=== PATIENT | female | born 1950 ===

== ENCOUNTER 2022-05-31 08:35 | Day surgery (SDC) | payer MEDICARE, OTHER ==
[~2022-05-31] VITALS: Ht 170.2 cm; Wt 63.1 kg
[~2022-05-31 08:35] MED LIST: ASPI81CH PO; C COMPLEX1000 M1 PO; EUTHYROX125 MCG PO; EZETIMIBE10 M2 PO; IMITREX25 MG PO; MULVITA PO; ROSU5 PO; VITAMIN D310 MC4 PO
--- NOTE | 2022-05-31 11:15 | NUR ---
05/31/22 1115 Rick Castaneda 1G GIVEN IN PRE-OP AT 0647
--- NOTE | 2022-05-31 14:35 | NUR ---
PATIENT CAME BACK FROM PACU TODAY AT 1420. POD 0 LEFT TOTAL KNEE PATIENT IS A&OX4. VS ARE WNL AND IS ON RA. PATIENT DID HAVE A SPINAL DONE DURING THE PROCEDURE AND CAN NOT FEEL FROM HER KNEES AND BELOW (L1 DERMATOME). SHE IS UNABLE TO MOVE HER TOES AT THIS TIME BUT PEDAL PULSES ARE STRONG AND WARM. LEFT KNEE HAS JOSE WRAP WITH GAUZE THAT IS C/D/I. PATIENT REPORTS HAVING A MIGRAINE PAIN BUT OTHERWISE HAS NO PAIN. PATIENT WAS JUST GIVEN ORAL MIGRAINE MEDICATION. SHE IS TOLERATING SMALL SIPS OF WATER AT THIS TIME. CALL LIGHT WITHIN REACH. IS NOW AT BEDSIDE.
--- NOTE | 2022-05-31 18:10 | NUR ---
SHIFT SUMMARY: POD 0 LEFT TKA PATIENT HAS BEEN VERY PAINFUL AND NAUSEATED SINCE POST OP INTERMITTENTLY. PATIENT HAS BEEN GIVEN IV PHENERGAN AND DILAUDID WHICH HAS SEEM TO BE THE BEST TO MANAGE BOTH NAUSEA AND PAIN. LEFT KNEE HAS JOSE WRAP AND GAUZE THAT IS C/D/I. SHE IS ABLE TO MOVE HER FINGERS AND TOES WHEN ASKED. SHE TOLERATED SMALL AMOUNTS OF PO INTAKE. CALLS APPROPRIATELY. CALL LIGHT WITHIN REACH. THE PLAN IS TO CONTINUE PAIN MANAGEMENT AND TO WORK WITH PT TOMORROW.
[2022-06-01 04:43] LABS: BASOPHILS ABSOLUTE AUTO 0.01 K/mm3 (0.00-0.23); BASOPHILS PERCENT AUTO 0 % (0-2); EOSINOPHILS ABSOLUTE AUTO 0.01 K/mm3 (0.00-0.68); EOSINOPHILS PERCENT AUTO 0 % (0-6); Hematocrit 31.9 % (33.0-51.0); IMMATURE GRAN ABSOLUTE AUTO 0.03 K/mm3 (0.00-0.10); IMMATURE GRAN PERCENT AUTO 0 % (0-1); LYMPHOCYTES ABSOLUTE AUTO 1.18 K/mm3 (0.84-5.20); LYMPHOCYTES PERCENT AUTO 11 % (21-46); MONOCYTES ABSOLUTE AUTO 0.77 K/mm3 (0.16-1.47); MONOCYTES PERCENT AUTO 8 % (4-13); Mean Corpuscular HGB 31.9 pg (26.0-34.0); Mean Corpuscular HGB Conc 34.5 g/dL (31.5-36.5); Mean Corpuscular Volume 93 fL (80-100); Mean Platelet Volume 10.2 fL (9.1-12.4); NEUTROPHILS ABSOLUTE AUTO 8.32 K/mm3 (1.96-9.15); NEUTROPHILS PERCENT AUTO 81 % (41-73); Platelet Count 227 K/mm3 (150-400); RDW Coefficient Variation 12.3 % (11.7-14.2); RDW Standard Deviation 41.6 fL (35.1-46.3); Red Blood Cell Count 3.45 M/mm3 (3.80-5.20); White Blood Cell Count 10.32 K/mm3 (4.00-11.30)
[2022-06-01 05:01] LABS: Bun/Creatinine Ratio 25.3 (12.0-20.0); Calcium, Blood 8.1 mg/dL (8.5-10.1); Creatinine, Blood 0.51 mg/dL (0.40-1.00); Magnesium, Blood 2.1 mg/dL (1.6-2.4); Potassium, Blood 3.9 mmol/L (3.5-5.5)
--- NOTE | 2022-06-01 05:05 | NUR ---
SHIFT SUMMARY: A&OX4. PODx1 LEFT TKA. PT TOLERATING PO FLUIDS AND SNACKED ON CRACKERS AND CHEESE T/O THE NIGHT. DENIED NAUSEA. PAIN WELL MANAGED PER EMAR ORDERS AND UNINTERRUPTED REST. AMBULATED TO BR USING FWW AND GAIT BELT. TOLERATED WELL, DENIED SOB OR DIZZINESS. GAUZE AND JOSE WRAP REMAIN IN PLACE ON L LEG. EATING, DRINKING, VOIDING. RESTING AT THIS TIME WITH CALL LIGHT IN REACH.
[2022-06-01] MEDS ORDERED: Percocet 5-3251 EACH PO (11:10)
[2022-06-01] MEDS ORDERED: PROM25 PO (11:11)
--- NOTE | 2022-06-01 11:56 | NUR ---
DISCHARGE SUMMARY PATIENT ALERT AND ORIENTED THROUGHOUT SHIFT. TOLERATING REGULAR DIET AND LIQUIDS. VOIDING WELL. PAIN CONTROLLED WITH PO PAIN MEDS. LEFT KNEE INCISIONS C/D/I. AQUACELS CHANGED THIS AM BY ORTHO. CLEARED FOR DISCHARGE BY PHYSICAL THERAPY. DISCHARGE ORDER ON CHART. DISCHARGE EDUCATION GIVEN ON NEW MEDS, ACTIVITY, WOUND CARE, AND FOLLOW UP. IV DC'D WNL. PATIENT LEFT UNIT AT 1155 VIA WHEELCHAIR WITH SPOUSE FOR HOME.
--- NOTE | 2022-06-01 12:15 | NUR ---
Student Consent Statement. Patient consented [place] [facility] [place] participate in her care today, 06/01/2022. [place]
== END 2022-06-01 11:53 | disposition home or self-care (01) ==
LOC: ORSCMMR 08:35 → ORD 10:45 → SURS 13:59 → ORSCMMR 06-01 11:53
PROVIDERS: Orthopaedic Surgery
PROC: 0SRD0J9 Replacement of Left Knee Joint with Synthetic Substitute, Cemented, Open Approach (ICD-10-PCS; principal; 2022-05-31 10:45)
DX: M17.12 Unilateral primary osteoarthritis, left knee (principal); E03.9 Hypothyroidism, unspecified; Z79.899 Other long term (current) drug therapy
CPT/HCPCS: 36415; 73560-LT; 80048; 83735; 85025; 97110; 97116; 97162; A9270; C1713; C1776; J0171; J0735; J1100; J1170; J1885; J2250; J2370; J2405; J2550; J2704; J2765; J2795; J3010; J3370; J7120